=== PATIENT | male | born 1960 | race Caucasian/White ===

== ENCOUNTER → 2020-01-24 | Day surgery (SDC) | payer OTHER ==
[2020-01-23 14:47] VITALS: BMI 29.5
[~2020-01-24] MED LIST: ALPRAZolam 0.25 MG TAB PO PRN; ALPRAZolam 0.5 MG TAB PO PRN; ASPIRIN 325 MG TAB PO STA; ATORVASTATIN 80 MG TAB PO STA; IOPAMIDOL-370 125ML BTL INJ ONE; LIDOCAINE 1% INJ 10MG/ML (20 ML MDV) SQ ONE; MIDAZOLAM 2 MG/2 ML VIAL IV ONE; NITROGLYCERIN SL TABS 0.4 MG TAB SUBLINGUAL PRN; RX INFO: IV CONTRAST WAS GIVEN 1 EACH MISC MISCELLANE PRN; SODIUM CHLORIDE 0.9% 1,000 ML IV SCH; SODIUM CHLORIDE 0.9% 1,000 ML in EMPTY BAG 1 BAG IV ONE
[2020-01-24 11:38] VITALS: RESP 18; TEMP 98.1
[2020-01-24 11:42] LABS: Basophils % (A) 1 %; Eosinophils # (A) 0.1 k/uL (0-0.7); Eosinophils % (A) 2 %; HCT 50.2 % (39.0-53.0); HGB 16.3 gm/dL (13.0-17.5); Lymphocytes # (A) 1.6 k/uL (1.0-4.8); Lymphocytes % (A) 29 %; MCH 31.1 pg (25.0-35.0); MCHC 32.4 g/dL (31.0-37.0); MCV 96.1 fL (80.0-100.0); Mean Platelet Volume 7.5; Monocytes # (A) 0.4 k/uL (0-1.0); Monocytes % (A) 7 %; Neutrophils # (A) 3.2 k/uL (1.3-7.7); Neutrophils % (A) 59 %; Platelet Count 245 k/uL (150-450); RBC 5.22 m/uL (4.30-5.90); RDW 12.3 % (11.5-15.5); WBC 5.5 k/uL (3.8-10.6)
[2020-01-24 12:19] LABS: African American GFR (CKD) >90 (>60 ml/min/1.73 sqM); Anion Gap 8 mmol/L; Blood Urea Nitrogen 16 mg/dL (9-20); Calcium 9.8 mg/dL (8.4-10.2); Carbon Dioxide 26 mmol/L (22-30); Chloride 107 mmol/L (98-107); Glucose 114 mg/dL (74-99); Non-African American GFR(CKD) >90 (>60 ml/min/1.73 sqM); Potassium 4.7 mmol/L (3.5-5.1); Sodium 141 mmol/L (137-145)
[2020-01-24] MEDS: VERAPAMIL SYRINGE (5 MG/10 ML) INTRAARTER ONE ×2 (12:30→12:40)
--- NOTE | 2020-01-24 13:02 | P.PCN ---
Date of Procedure: 01/24/20 Operative Findings: CARDIAC CATHETERIZATION PERFORMING PHYSICIAN: Keith Smith MD, RPVI PROCEDURE PERFORMED: 1. Selective right and left coronary angiogram 2. Left heart catheterization INDICATION: This is a very pleasant 59-year-old gentleman with a family history of coronary artery disease was experiencing symptoms of chest discomfort and shortness of breath. He was seen by Dr. iH and underwent an exercise treadmill stress test and that came in to be abnormal. Because of that he was referred to see me. I advised the patient to undergo a heart catheterization. COMPLICATION: None APPROACH: Right radial artery LEVEL OF SEDATION: Moderate with a sedation length of 20 minutes PROCEDURE DESCRIPTION: After obtaining an informed consent, the patient was brought to cardiac poultry farm laborer. Local anesthesia was performed using lidocaine subcutaneously. The right radial artery was cannulated using Seldinger technique, the guidewire passed easily, following that we advanced a 5-Fijian sheath dilator assembly, the wire and dilator were removed and sheath was flushed. Following that, 2 mg of verapamil along with 5000 unit heparin were given. Selective right and left coronary angiogram using a 6-Fijian JR4 and JL 3.5 catheters. Following that we did left heart catheterization using 6-Fijian pigtail catheter. The procedure was completed there was no complication. SELECTIVE CORONARY ANGIOGRAM: The right coronary artery: Is a large caliber vessel and a dominant vessel. The RCA is chronically occluded in the midportion and fills by collateral from the left coronary system Left main: Calcified was mild disease only. Bifurcates into LCx and LAD The left circumflex: Is a large caliber vessel and codominant vessel. The proximal LCx have mild disease only and gives rises into first obtuse marginal branch which is a small- caliber vessel with severe disease in the proximal portion. The mid LCx has mild disease only as well and gives rises into a second obtuse marginal branch which is a large caliber vessel with lesion appeared to be in the range of 50- 60%. The LCx distally appeared to be normal and bifurcates into PDA and PLV branches both appeared to have mild disease only. The left anterior descending artery: Is a large caliber vessel. The proximal LAD appeared to have mild disease only. It gives rises into the first diagonal branch which has severe disease appears to be in the range of 70% of the first diagonal is a medium caliber vessel and about 2 mm vessel. The mid LAD has another lesion appears to be in the range of 60-70%. The LAD distally appears to be angiographically normal. The LAD in the midportion has another takeoff of her diuretic which seems to have mild disease only. HEMODYNAMICS: The LVEDP was 12 mmHg without significant gradient across aortic valve CONCLUSION: 1. 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 2. Intermediate to severe disease involving OM 2 of the LCx 3. Intermediate to severe disease involving the mid LAD. Severe disease involving the first diagonal branch of the LAD which is only 2 mm vessel POSTPROCEDURE MANAGEMENT: 1. Giving the above anatomy, I advised maximize medical treatment. 2. Continue the aspirin as well as statin. We will achieve an aggressive cholesterol control 3. He cannot take any beta timothy in view of the baseline bradycardia 4. Add oral nitrates to the current medical regimen 5. If she continues to be symptomatic we will consider doing PCI of the RCA as well as first diagonal branch
[2020-01-24 18:11] VITALS: BP 124/62; PULSE 64
== END ==
LOC: CATHCVL 11:06
PROVIDERS: ATTEND Internal Medicine Interventional Cardiology
DX: I25.110 Atherosclerotic heart disease of native coronary artery with unstable angina pectoris (principal); I25.82 Chronic total occlusion of coronary artery; Z82.49 Family history of ischemic heart disease and other diseases of the circulatory system
CPT/HCPCS: 93458; 80048; 85025; 87635; C1769; C1894; J2250; J2001; J1644; Q9967